=== PATIENT | female | born 1980 | race Caucasian/White ===

== ENCOUNTER 2020-09-02 08:46 | Emergency (ER) | payer OTHER, SELFPAY ==
[2020-09-02 08:56] VITALS: BP 118/68; PULSE 81; RESP 18; TEMP 36.7; O2SAT 99
--- NOTE | 2020-09-02 09:20 | ED.SKABFB ---
HPI - Skin/Abscess/Foreign Bdy General Stated complaint: Rash on Arms, Chest and Nose Time Seen by Provider: 09/02/20 09:26 Source: patient and RN notes reviewed Mode of arrival: ambulatory Limitations: no limitations History of Present Illness HPI narrative: 40-year-old female presents with concern for rash after sun exposure. Reports she was at [employer] over the weekend, was wearing sunscreen, however developed a rash later the day. She reports slightly itchy. Reports this is happened to her before after prolonged exposure to the sun. She denies any blistering, peeling. Reports red itchy bumps on her forearms and chest. Denies trouble breathing, swollen lips, swollen tongue. MD complaint: rash Related Data Home Medications Medication Instructions Recorded Confirmed sertraline 50 mg 09/02/20 Allergies Allergy/AdvReac Type Severity Reaction Status Date / Time No Known Allergies Allergy Unverified 01/25/17 10:24 Review of Systems Review of Systems: Narrative: CONSTITUTIONAL: Denies malaise, chills, sweats, or fever. ENT: Denies swollen lips, swollen tongue CARDIOVASCULAR: Denies chest pain, palpitations, or edema. RESPIRATORY: Denies cough or dyspnea. GASTROINTESTINAL: Denies abdominal pain, nausea, vomiting, diarrhea SKIN: Reports itchy rash on her chest and forearms All systems reviewed & are unremarkable except as noted in HPI and below PMFSH Comments At time of signature, agree with nursing past medical, surgical, social and family history. There is no relevant family history pertinent to the presenting complaint Exam Narrative: Exam Narrative: GENERAL: Well-appearing, well-nourished, and in no acute distress. HEAD: Normocephalic, atraumatic. EYES: PERRLA, conjunctivae clear ENT: Mucous membranes moist. Oropharynx without edema, erythema or lesions. NECK: Supple. No lymphadenopathy CHEST: Clear to auscultation. No respiratory distress. HEART: Regular rate and rhythm. SKIN: Warm, dry. Patches of erythematous papules noted to the bilateral forearms and chest. No other rash noted NEURO: Alert and oriented x3. PSYCH: Normal mood and affect Course Course Emergency Course: Patient is aware of diagnosis, understands and agrees to treatment plan. Anticipatory guidance given. Patient agrees to follow-up as directed and is aware of reasons to seek care at the emergency department. Portions of this record may have been created with voice recognition software Vital Signs Vital signs: Vital Signs Temperature 98.0 F 09/02/20 08:56 Pulse Rate 81 09/02/20 08:56 Respiratory Rate 18 09/02/20 08:56 Blood Pressure 118/68 09/02/20 08:56 Pulse Oximetry 99 09/02/20 08:56 Temperature 98.0 F 09/02/20 08:56 Pulse Rate 81 09/02/20 08:56 Respiratory Rate 18 09/02/20 08:56 Blood Pressure 118/68 09/02/20 08:56 Pulse Oximetry 99 09/02/20 08:56 Reviewed. MDM - Skin/Abscess/Foreign Bdy MDM Narrative Medical decision making narrative: Does not appear at this time to be erythema multiforme, bullous, SJS, TEN; no evidence at this time to suggest RMSF, endocarditis or Lyme disease; patient looks well, nontoxic and is tolerating oral intake; no neurologic signs or symptoms; no headache, photophobia or neck pain; afebrile; appropriate for initial outpatient treatment; discussed the importance of follow-up, patient agrees; question, viral exanthema, contact dermatitis, allergic dermatitis, eczema, urticaria, polymorphous light eruption. No soft palate or uvula edema, no tongue, lip edema or other mucosal involvement, no respiratory compromise, no stridor, no wheezing, no wheezing, no history of syncope, no hypotension, no nausea, vomiting, or diarrhea. Instructed patient to go to nearest ER immediately for any worsening symptoms including but not limited to: fever, spreading rash, pain, sore throat, headache, dizziness, chest pain, trouble breathing, or any symptoms concerning to the patient. C
== END 2020-09-02 10:13 | disposition home or self-care (01) ==
PROVIDERS: Emergency Provider Nurse Practitioner
DX: L56.4 Polymorphous light eruption (principal)
CPT/HCPCS: 99203; G0463

== ENCOUNTER 2021-08-17 13:17 | Emergency (ER) | payer OTHER, SELFPAY ==
[2021-08-17 13:27] VITALS: BP 142/79; PULSE 84; RESP 16; TEMP 36.7; O2SAT 100
--- NOTE | 2021-08-17 13:40 | ED.SKABFB ---
HPI - Skin/Abscess/Foreign Bdy General Chief complaint: Skin/Abscess/Foreign Body Stated complaint: rash Time Seen by Provider: 08/17/21 13:33 Source: patient and RN notes reviewed Mode of arrival: ambulatory Limitations: no limitations History of Present Illness HPI narrative: 41-year-old female presents with concern for rash on bilateral forearms and her ears. She reports she has a history of similar rash when she has been exposed to the sun. Reports she has been trying to scare the sun and wear sunscreen, however yesterday she was in a parade and has this rash today. She denies swollen lips, swollen tongue, trouble breathing. Denies any rash where to the skin it was not exposed to the sun MD complaint: rash Related Data Allergies Allergy/AdvReac Type Severity Reaction Status Date / Time No Known Allergies Allergy Unverified 08/17/21 13:26 Review of Systems Review of Systems: CONSTITUTIONAL: Denies malaise, chills, sweats, or fever. EYES: Denies redness, or discharge. ENT: Denies rhinorrhea, congestion, swollen lips, swollen tongue CARDIOVASCULAR: Denies chest pain, palpitations, or edema. RESPIRATORY: Denies cough or dyspnea. GASTROINTESTINAL: Denies abdominal pain, nausea, vomiting SKIN: Reports rash on bilateral forearms and ears MUSCULOSKELETAL: Denies joint painor myalgia. NEUROLOGIC: Denies headache. All systems reviewed & are unremarkable except as noted in HPI and below PMFSH Social History Social History Gender identity (if verbalized by the patient): Female Comments At time of signature, agree with nursing past medical, surgical, social and family history. There is no relevant family history pertinent to the presenting complaint Exam Narrative: GENERAL: Well-appearing, well-nourished, and in no acute distress. HEAD: Normocephalic, atraumatic. EYES: PERRLA, conjunctivae clear, and EOMI. ENT: Mucous membranes moist. Oropharynx without edema, erythema or lesions. NECK: Supple. No lymphadenopathy CHEST: Clear to auscultation. No respiratory distress. HEART: Regular rate and rhythm. SKIN: Warm, dry. Erythematous papules noted to bilateral forearms and outer ears, no rash noted to the upper arms where skin is covered with clothing NEURO: Alert and oriented x3. PSYCH: Normal mood and affect Course Course Emergency Course: Patient is aware of diagnosis, understands and agrees to treatment plan. Anticipatory guidance given. Patient agrees to follow-up as directed and is aware of reasons to seek care at the emergency department. Portions of this record may have been created with voice recognition software Level of Care: Express Care Visit Vital Signs Vital signs: Vital Signs Temperature 98.0 F 08/17/21 13:27 Pulse Rate 84 08/17/21 13:27 Respiratory Rate 16 08/17/21 13:27 Blood Pressure 142/79 H 08/17/21 13:27 Pulse Oximetry 100 08/17/21 13:27 Oxygen Delivery Room Air 08/17/21 13:27 Temperature 98.0 F 08/17/21 13:27 Pulse Rate 84 08/17/21 13:27 Respiratory Rate 16 08/17/21 13:27 Blood Pressure 142/79 H 08/17/21 13:27 Pulse Oximetry 100 08/17/21 13:27 Oxygen Delivery Room Air 08/17/21 13:27 Reviewed. MDM - Skin/Abscess/Foreign Bdy MDM Narrative Medical decision making narrative: Does not appear at this time to be erythema multiforme, bullous, SJS, TEN; no evidence at this time to suggest RMSF, endocarditis or Lyme disease; patient looks well, nontoxic and is tolerating oral intake; no neurologic signs or symptoms; no headache, photophobia or neck pain; afebrile; appropriate for initial outpatient treatment; discussed the importance of follow-up, patient agrees; question, viral exanthema, contact dermatitis, allergic dermatitis, eczema, urticaria. No soft palate or uvula edema, no tongue, lip edema or other mucosal involvement, no respiratory compromise, no stridor, no wheezing, no wheezing, no history of syncope, no hypotension, no nausea, vomiting, or diarr
== END 2021-08-17 13:47 | disposition home or self-care (01) ==
PROVIDERS: Emergency Provider Nurse Practitioner
DX: R21 Rash and other nonspecific skin eruption (principal)
CPT/HCPCS: 99213; G0463